=== PATIENT | female | born 1935 | race African-American/Black ===

== ENCOUNTER 2017-01-04 23:12 | Inpatient (IN) | payer MEDICARE, MEDICAID ==
[~2017-01-04] VITALS: Ht 157.5 cm; Wt 60.3 kg
[~2017-01-04 23:12] MED LIST: CELE200C PO; CLOP75TA33 PO; DIAZ5TAB4 PO; HCTZ PO; HYDR25TA PO; LOSA100T14 PO; MELO-57 PO; NIFE60TA64 PO; PANT40TA4 PO; PLAVIX PO; PROTONIX PO; QUET25TA PO
[2017-01-05] VITALS (7 sets, daily range): BP systolic 95–120; BP diastolic 55–80
[2017-01-05 00:38] LABS: BASOPHILS % 0.6 % (0.0-2.0); EOSINOPHILS % 1.3 % (0.0-5.0); HEMATOCRIT. 33.9 % (36.0-48.0); HEMOGLOBIN. 11.2 g/dL (12.0-16.0); LYMPHOCYTES % 38.1 % (20.0-50.0); MEAN CORPUSCULAR HEMOGLOBIN 28.5 pg (28.0-32.0); MEAN CORPUSCULAR HGB CONC 32.9 g/dL (31.0-37.0); MEAN CORPUSCULAR VOLUME 86.7 fL (81.0-99.0); MEAN PLATELET VOLUME 7.4 fl (7.4-10.4); MONOCYTES % 9.9 % (2.0-8.0); NEUTROPHILS % 50.1 % (40.0-76.0); PLATELET 349 x1000/uL (130-400); RED BLOOD CELL COUNT 3.91 mill/uL (4.2-5.4); WHITE BLOOD COUNT 7.6 x1000/uL (4.5-11.0)
[2017-01-05 00:48] LABS: CLARITY URINE CLOUDY (CLEAR); COLOR URINE YELLOW (YELLOW); GLUCOSE URINE NEGATIVE (NEGATIVE); KETONES URINE NEGATIVE (NEGATIVE); LEUKOCYTE ESTERASE URINE 1+ (NEGATIVE); NITRITE URINE NEGATIVE (NEGATIVE); OCCULT BLOOD URINE NEGATIVE (NEGATIVE); PROTEIN URINE NEGATIVE (NEGATIVE); SPECIFIC GRAVITY URINE 1.023 (1.005-1.030)
[2017-01-05 00:49] LABS: AMMONIA 20 uMol/L (<32)
[2017-01-05 00:56] LABS: ACETAMINOPHEN < 2 ug/mL (10-30); ALANINE AMINOTRANSFERASE 12 IU/L (13-61); ALBUMIN 2.6 g/dL (3.4-5.0); ANION GAP 11; CALCIUM 7.9 mg/dL (8.5-10.1); CARBON DIOXIDE 24 mEq/L (21-32); CHLORIDE 110 mEq/L (98-107); ETHANOL BLOOD < 10 mg/dL; INDEX HEMOLYSI 1 (1-3); INDEX ICTERIC 1 (1-4); INDEX LIPEMIC 1 (1-3); NT PRO B-TYPE NATRIURETIC PEP 348 pg/mL (5-125); TROPONIN I < 0.02 ng/mL (0.00-0.04); UREA NITROGEN BLOOD 14 mg/dL (7-21); eGFR > 60 mL/min (>60)
[2017-01-05 00:59] LABS: SQUAMOUS EPITHELIAL CELL URINE FEW /lpf (RARE/1+)
[2017-01-05 01:00] LABS: BACTERIA URINE 4+; RBC URINE 0-2 /hpf (0-2)
[2017-01-05 01:04] LABS: *AMPHETAMINES SCREEN URINE NEGATIVE (NEGATIVE); *BARBITURATES SCREEN URINE NEGATIVE (NEGATIVE); *BENZODIAZEPINES SCREEN URINE PRESUMTIVE POSITIVE (NEGATIVE); *COCAINE SCREEN URINE NEGATIVE (NEGATIVE); CANNABINOID URINE SCREEN NEGATIVE (NEGATIVE); ECSTASY MDMA SCREEN URINE NEGATIVE (NEGATIVE); METHADONE URINE SCREEN NEGATIVE (NEGATIVE); OPIATES URINE SCREEN NEGATIVE (NEGATIVE); PHENCYCLIDINE URINE SCREEN NEGATIVE (NEGATIVE)
[2017-01-05] MEDS ORDERED: LEVOFLOXACIN 750MG PREMIX 150 ML IV NR (02:15)
[2017-01-05] MEDS ORDERED: CEFTRIAXONE 2 G PREMIX 50 ML IV ONE (02:15)
[2017-01-05] MEDS ORDERED: POTASSIUM CHLORIDE 20MEQ TABLET SR PO SCH (08:00)
[2017-01-05] MEDS ORDERED: GABA-529 PO (09:49)
[2017-01-05] MEDS ORDERED: TOLT2CAP7 PO (09:53)
[2017-01-05] MEDS ORDERED: NIFE30TA8 PO (09:53)
[2017-01-05] MEDS ORDERED: IOHEXOL-300 100 ML BOTTLE ONE (11:29)
[2017-01-05] MEDS ORDERED: SODIUM CHLORIDE 0.9% 10ML VIAL ONE (11:29)
[2017-01-05] MEDS ORDERED: DIAZEPAM 5 MG TABLET PO PRN (13:00)
[2017-01-05] MEDS ORDERED: IPRATROPIUM/ALBUTEROL 0.5-3(2.5)MG/3ML NEB INH PRN (13:15)
[2017-01-05] MEDS ORDERED: HYDROCODONE/ACETAMINOPHEN 5/325MG TABLET PO PRN (13:15)
[2017-01-05] MEDS ORDERED: ACETAMINOPHEN 325MG TABLET PO PRN (13:15)
[2017-01-05] MEDS ORDERED: CLONIDINE 0.1MG TABLET PO PRN (13:15)
[2017-01-05] MEDS ORDERED: ONDANSETRON HCL 4MG/2ML VIAL IV PRN (13:15)
[2017-01-05] MEDS: PANTOPRAZOLE 40MG DR TABLET PO SCH (13:19)
[2017-01-05] MEDS: NIFEDIPINE XL 30MG TAB PO SCH (13:19)
[2017-01-05] MEDS: CLOPIDOGREL 75MG TABLET PO SCH (13:20)
[2017-01-05] MEDS: ENOXAPARIN 40MG/0.4ML SYR SUBCUT SCH (13:23)
[2017-01-05] MEDS ORDERED: DEXTROSE 50% WATER 50ML SYRINGE IV PRN (15:30)
[2017-01-05] MEDS: INSULIN LISPRO 100 UNITS/ML SUBCUT SCH ×2 (18:10→20:43)
[2017-01-05] MEDS: BLOOD SUGAR DIAGNOSTIC STRIP TEST SCH ×2 (18:17→20:42)
[2017-01-05] MEDS ORDERED: GABAPENTIN 100MG CAPSULE PO SCH (21:00)
[2017-01-06] VITALS: BP 140/61
[2017-01-06 04:00] VITALS: BP 118/71
[2017-01-06 07:01] LABS: BASOPHILS % 0.6 % (0.0-2.0); EOSINOPHILS % 0.9 % (0.0-5.0); HEMATOCRIT. 37.1 % (36.0-48.0); HEMOGLOBIN. 12.2 g/dL (12.0-16.0); LYMPHOCYTES % 31.9 % (20.0-50.0); MEAN CORPUSCULAR HEMOGLOBIN 28.4 pg (28.0-32.0); MEAN CORPUSCULAR VOLUME 86.2 fL (81.0-99.0); MEAN PLATELET VOLUME 7.4 fl (7.4-10.4); MONOCYTES % 9.9 % (2.0-8.0); NEUTROPHILS % 56.7 % (40.0-76.0); PLATELET 386 x1000/uL (130-400); RED CELL DISTRIBUTION WIDTH 15.7 % (11.6-14.6); WHITE BLOOD COUNT 7.3 x1000/uL (4.5-11.0)
[2017-01-06] MEDS: BLOOD SUGAR DIAGNOSTIC STRIP TEST SCH ×2 (07:01→12:55)
[2017-01-06] MEDS: INSULIN LISPRO 100 UNITS/ML SUBCUT SCH ×2 (07:01→12:55)
[2017-01-06 08:00] VITALS: BP 128/73
[2017-01-06 08:00] LABS: ALANINE AMINOTRANSFERASE 11 IU/L (13-61); ALBUMIN 2.9 g/dL (3.4-5.0); ANION GAP 13; CALCIUM 8.4 mg/dL (8.5-10.1); CARBON DIOXIDE 24 mEq/L (21-32); CHLORIDE 107 mEq/L (98-107); HDL CHOLESTEROL 55 mg/dL (40-59); INDEX HEMOLYSI 1 (1-3); INDEX ICTERIC 1 (1-4); INDEX LIPEMIC 1 (1-3); LDL CHOLESTEROL 104 mg/dL (5-100); TRIGLYCERIDE 46 mg/dL (0-150); UREA NITROGEN BLOOD 10 mg/dL (7-21); eGFR > 60 mL/min (>60)
[2017-01-06] MEDS: PANTOPRAZOLE 40MG DR TABLET PO SCH (08:51)
[2017-01-06] MEDS: CLOPIDOGREL 75MG TABLET PO SCH (08:51)
[2017-01-06] MEDS: NIFEDIPINE XL 30MG TAB PO SCH (08:52)
[2017-01-06 12:00] VITALS: BP 106/63
[2017-01-06] MEDS: ENOXAPARIN 40MG/0.4ML SYR SUBCUT SCH (13:11)
[2017-01-06 15:16] VITALS: BP 113/92
[2017-01-06 16:00] VITALS: BP 113/82
== END 2017-01-06 17:20 | disposition home or self-care (01) | DRG 689 ==
LOC: ER 23:15 → OBSVTOIN 01-05 02:36 → 7WST 01-05 02:36 → INTOOBSV 01-05 02:36
PROVIDERS: ADMIT Internal Medicine; ATTEND Internal Medicine
DX: N39.0 Urinary tract infection, site not specified (principal); G93.40 Encephalopathy, unspecified; F05 Delirium due to known physiological condition; F03.90 Unspecified dementia, unspecified severity, without behavioral disturbance, psychotic disturbance, mood disturbance, and anxiety; E87.6 Hypokalemia; E11.9 Type 2 diabetes mellitus without complications; I10 Essential (primary) hypertension; I25.10 Atherosclerotic heart disease of native coronary artery without angina pectoris; Z95.0 Presence of cardiac pacemaker
CPT/HCPCS: 36415; 70450; 70460; 71010; 80053; 80061; 80302; 80305; 80329; 81001; 82140; 82962; 83605; 83880; 84439; 84443; 84484; 85025; 87040; 93005; 96365; 96366; 99285; A4216; A6261; G0378; G0482; J1650; J1956; Q9967

== ENCOUNTER 2017-04-09 17:40 | Observation (INO) | payer MEDICARE, MEDICAID ==
[~2017-04-09] VITALS: Ht 157.5 cm; Wt 52.2 kg
[~2017-04-09 17:40] MED LIST changes: -CELE200C PO; +DETLA2 PO; +GABA-529 PO; -HCTZ PO; -HYDR25TA PO; -LOSA100T14 PO; -MELO-57 PO; +NIFE30TA8 PO; -NIFE60TA64 PO; -PLAVIX PO; -PROTONIX PO
[2017-04-09] MEDS ORDERED: SODIUM CHLORIDE 0.9% 500 ML IV ONE (18:47)
[2017-04-09 19:24] LABS: CHLORIDE 107 mEq/L (98-107); EOSINOPHILS % 1.7 % (0.0-5.0); HEMATOCRIT. 37.4 % (36.0-48.0); HEMOGLOBIN. 12.3 g/dL (12.0-16.0); LYMPHOCYTES % 35.5 % (20.0-50.0); MEAN CORPUSCULAR VOLUME 85.3 fL (81.0-99.0); MEAN PLATELET VOLUME 7.5 fl (7.4-10.4); NEUTROPHILS % 52.8 % (40.0-76.0); PLATELET 364 x1000/uL (130-400); RED BLOOD CELL COUNT 4.39 mill/uL (4.2-5.4); RED CELL DISTRIBUTION WIDTH 15.3 % (11.6-14.6)
[2017-04-09 19:28] LABS: CARBON DIOXIDE 26 mEq/L (21-32)
[2017-04-09 19:31] LABS: CLARITY URINE CLOUDY (CLEAR); COLOR URINE YELLOW (YELLOW); GLUCOSE URINE NEGATIVE (NEGATIVE); KETONES URINE NEGATIVE (NEGATIVE); LEUKOCYTE ESTERASE URINE 1+ (NEGATIVE); NITRITE URINE NEGATIVE (NEGATIVE); OCCULT BLOOD URINE NEGATIVE (NEGATIVE); PROTEIN URINE NEGATIVE (NEGATIVE); SPECIFIC GRAVITY URINE 1.018 (1.005-1.030)
[2017-04-09 19:35] LABS: TROPONIN I < 0.02 ng/mL (0.00-0.04)
[2017-04-09] MEDS ORDERED: LEVOFLOXACIN 500MG PREMIX 100 ML IV ONE (20:30)
[2017-04-09] MEDS ORDERED: CLOPIDOGREL 75MG TABLET PO ONE (21:00)
[2017-04-10 00:50] VITALS: BP 153/93
[2017-04-10 01:20] VITALS: BP 153/93
[2017-04-10] MEDS ORDERED: HYDROCODONE/ACETAMINOPHEN 5/325MG TABLET PO PRN (01:45)
[2017-04-10] MEDS ORDERED: CLONIDINE 0.1MG TABLET PO PRN (01:45)
[2017-04-10 04:00] VITALS: BP 115/68
[2017-04-10 06:40] LABS: BASOPHILS % 1.1 % (0.0-2.0); HEMATOCRIT. 35.9 % (36.0-48.0); HEMOGLOBIN. 12.1 g/dL (12.0-16.0); LYMPHOCYTES % 43.1 % (20.0-50.0); MEAN CORPUSCULAR HEMOGLOBIN 28.4 pg (28.0-32.0); MEAN CORPUSCULAR VOLUME 84.5 fL (81.0-99.0); MEAN PLATELET VOLUME 7.2 fl (7.4-10.4); MONOCYTES % 11.2 % (2.0-8.0); NEUTROPHILS % 42.6 % (40.0-76.0); PLATELET 343 x1000/uL (130-400); RED BLOOD CELL COUNT 4.25 mill/uL (4.2-5.4); RED CELL DISTRIBUTION WIDTH 15.3 % (11.6-14.6)
[2017-04-10 07:56] LABS: CARBON DIOXIDE 25 mEq/L (21-32); CHLORIDE 107 mEq/L (98-107)
[2017-04-10] MEDS ORDERED: BISACODYL 5MG TABLET PO PRN (15:00)
[2017-04-10] MEDS ORDERED: POTASSIUM CHLORIDE 20MEQ TABLET SR PO NR (15:00)
[2017-04-10] MEDS ORDERED: LEVOFLOXACIN 500MG PREMIX 100 ML IV SCH (15:15)
[2017-04-10] MEDS ORDERED: ACETAMINOPHEN 325MG TABLET PO PRN (15:15)
[2017-04-10] MEDS: ASPIRIN 81MG TABLET PO SCH (16:16)
[2017-04-10] MEDS: SODIUM CHLORIDE 0.9% 1,000 ML IV SCH (16:20)
[2017-04-10 16:53] VITALS: BP 125/74
[2017-04-10 20:00] VITALS: BP 153/91
[2017-04-10] MEDS ORDERED: LEVOFLOXACIN 250MG PREMIX 50 ML IV SCH (21:00)
[2017-04-11] VITALS: BP 132/98
[2017-04-11 04:00] VITALS: BP 126/79
[2017-04-11 07:54] VITALS: BP 130/78
[2017-04-11] MEDS: ASPIRIN 81MG TABLET PO SCH (09:00)
[2017-04-11] MEDS: SODIUM CHLORIDE 0.9% 1,000 ML IV SCH (11:47)
[2017-04-11 12:00] VITALS: BP 129/76
[2017-04-11 12:52] VITALS: BP 129/76
== END 2017-04-11 13:55 | disposition home or self-care (01) ==
LOC: ER 19:28 → 8WST 21:17 → INTOOBSV 21:17 → ENRESERV 22:30
PROVIDERS: ADMIT Internal Medicine; ATTEND Internal Medicine
DX: G93.40 Encephalopathy, unspecified (principal); R41.82 Altered mental status, unspecified; N39.0 Urinary tract infection, site not specified; E87.6 Hypokalemia; E86.0 Dehydration; E11.9 Type 2 diabetes mellitus without complications; F03.90 Unspecified dementia, unspecified severity, without behavioral disturbance, psychotic disturbance, mood disturbance, and anxiety; I10 Essential (primary) hypertension; I25.2 Old myocardial infarction; Z95.0 Presence of cardiac pacemaker; Z88.6 Allergy status to analgesic agent
CPT/HCPCS: 36415; 70450; 71010; 80048; 80053; 81001; 84443; 84484; 85025; 87086; 93005; 93880; 93970; 96361; 96365; 96366; 99285; A6261; C1893; G0378; J1956; J7030; J7040